=== PATIENT | male | born 1955 | race Caucasian/White ===

== ENCOUNTER 2025-04-02 08:36 | Inpatient (IN) | payer OTHER ==
[2025-04-02 09:03] VITALS: BMI 21.6
[2025-04-02] MEDS ORDERED: IBUPROFEN 400 MG TABLET (FP) PO PRN (09:50)
[2025-04-02] MEDS ORDERED: guaiFENesin 600 MG TABLET.ER (FP) PO PRN (09:50)
[2025-04-02] MEDS ORDERED: LOPERAMIDE HCL 2 MG CAPSULE PO PRN (09:50)
[2025-04-02] MEDS ORDERED: ONDANSETRON *ODT* 4 MG TABLET SL PRN (09:50)
[2025-04-02] MEDS ORDERED: POLYETHYLENE GLYCOL (HEALTHYLAX) 3350 17 GM PACKET PO PRN (09:50)
[2025-04-02] MEDS ORDERED: NICOTINE POLACRILEX 2 MG LOZENGE BC PRN (09:50)
[2025-04-02] MEDS ORDERED: BISMUTH SUBSALICYLATE 524 MG/30 ML PO PRN (09:50)
[2025-04-02] MEDS ORDERED: NALOXONE (NARCAN) HCL 4 MG/0.1 ML SPRAY NS PRN (09:50)
[2025-04-02] MEDS ORDERED: BENZONATATE 200 MG CAPSULE PO PRN (09:50)
[2025-04-02] MEDS ORDERED: BENZOCAINE/MENTHOL (CHLORASEPTIC ) LOZENGE MM PRN (09:50)
[2025-04-02] MEDS: PRENATAL VITAMINS W/ FOLIC ACID TABLET (FP) PO SCH (12:36)
[2025-04-02] MEDS: NICOTINE 14 MG/24 HOURS TOPICAL PATCH TD SCH (12:37)
[2025-04-02] MEDS: THIAMINE 100 MG TABLET PO SCH (22:32)
[2025-04-02] MEDS: MELATONIN 5 MG TABLETS PO SCH (22:32)
[2025-04-02] MEDS: METHOCARBAMOL 500 MG TABLET PO PRN (22:35)
[2025-04-03 11:35] LABS: MCHC 31.4 g/dl (32.3-36.5); MEAN CELL VOLUME 80.6 fl (79.0-92.2); MEAN PLT VOLUME 11.1 fl (9.4-12.4); RDW 18.0 % (12.2-16.6)
[2025-04-03 12:04] LABS: GLUCOSE,RANDOM 101.0 mg/dL (74-106)
[2025-04-03 12:05] LABS: TOT PROT 6.3 g/dl (6.4-8.2)
[2025-04-03 12:06] LABS: CO2 23.0 mmol/L (21-32)
[2025-04-03 12:07] LABS: ALK PHOS 598.0 U/L (40-150)
[2025-04-03 12:10] LABS: CREATININE 0.73 mg/dL (0.55-1.3); SGOT/AST 67.0 U/L (5-34); SGPT/ALT 53.0 U/L (0-55)
[2025-04-03 14:28] LABS: SYPHILIS W/ RPR CONF REACTIVE (NONREACTIVE)
[2025-04-03] MEDS: DICYCLOMINE HCL 10 MG CAPSULE PO PRN (18:20)
[2025-04-03] MEDS: ACETAMINOPHEN 325 MG TABLET (FP) PO PRN (18:20)
[2025-04-03] MEDS: MAGNESIUM HYDROX 2400MG/30ML ORAL SUSPENSION 30 ML CUP PO PRN (18:20)
[2025-04-03] MEDS: MAG HYDROX/AL HYDROX/SIMETH 30 ML UNIT-DOSE CUP PO PRN (19:34)
[2025-04-04 12:33] LABS: RPR REFLEX REACTIVE 1:1 (NONREACTIVE)
[2025-04-04] MEDS: PENICILLIN G BENZATHINE 2,400,000 UNIT/4 ML PFS IM ONE ×2 (21:45→22:46)
[2025-04-04] MEDS: IBUPROFEN 600 MG TABLET (FP) PO PRN (22:48)
[2025-04-06 09:53] VITALS: RESP 16
[2025-04-06 09:57] LABS: ABSOLUTE IMMATURE GRANULOCYTES 0.04 x10^3/uL (0.0-0.031); BASOPHILS # 0.10 x10^3/uL (0.01-0.08); EOSINOPHIL % 7.8 % (0.8-7.0); EOSINOPHILS # 0.71 x10^3/uL (0.04-0.54); MCHC 30.8 g/dl (32.3-36.5); MEAN CELL VOLUME 81.4 fl (79.0-92.2); MEAN PLT VOLUME 11.1 fl (9.4-12.4); MONOCYTE # 0.74 x10^3/uL (0.30-0.82); MONOCYTE % 8.1 % (5.3-12.2); RDW 17.5 % (12.2-16.6)
[2025-04-06 10:15] LABS: GLUCOSE,RANDOM 95.0 mg/dL (74-106)
[2025-04-06 10:16] LABS: TOT PROT 6.0 g/dl (6.4-8.2)
[2025-04-06 10:17] LABS: CO2 24.0 mmol/L (21-32)
[2025-04-06 10:18] LABS: ALK PHOS 521.0 U/L (40-150)
[2025-04-06 10:21] LABS: CREATININE 0.63 mg/dL (0.55-1.3); SGOT/AST 38.0 U/L (5-34); SGPT/ALT 44.0 U/L (0-55)
[2025-04-06 14:05] VITALS: BP 145/64; PULSE 73; TEMP 97.7
[2025-04-06] MEDS: hydrOXYzine PAMOATE 25 MG CAPSULE (FP) PO PRN (14:29)
== END 2025-04-07 08:08 | disposition short-term general hospital (02) | DRG 897 ==
LOC: YASAS 08:36 → SUATTDRO 08:36 → Y6N 11:59
PROVIDERS: ADMIT Family Medicine; ATTEND Student in an Organized Health Care Education/Training Program
PROC: HZ2ZZZZ Detoxification Services for Substance Abuse Treatment (ICD-10-PCS; principal; 2025-04-02)
DX: F11.23 Opioid dependence with withdrawal (principal); Z94.4 Liver transplant status; Z59.00 Homelessness unspecified; F17.210 Nicotine dependence, cigarettes, uncomplicated; I10 Essential (primary) hypertension; E78.5 Hyperlipidemia, unspecified; F32.A Depression, unspecified; D64.9 Anemia, unspecified; R41.82 Altered mental status, unspecified
CPT/HCPCS: 36415; 80053; 80305; 80307; 85025; 85027; 86593; 86780; 93005; 93010